=== PATIENT | male | born 1970 | race Caucasian/White ===

== ENCOUNTER 2020-04-14 14:01 | Emergency (ER) | payer OTHER ==
[~2020-04-14] VITALS: Ht 162.6 cm; Wt 90.7 kg
[2020-04-14 14:03] VITALS: Ht 162.6 cm; Wt 90.7 kg
[2020-04-14 15:39] VITALS: BP 123/63
== END 2020-04-14 15:39 | disposition home or self-care (01) ==
LOC: ED 14:01
DX: U07.1 COVID-19 (principal); J12.82 Pneumonia due to coronavirus disease 2019; Z98.890 Other specified postprocedural states